=== PATIENT | male | born 1990 | race Caucasian/White ===

== ENCOUNTER 2018-12-10 14:17 | Emergency (ER) | payer SELFPAY ==
[2018-12-10 14:56] VITALS: BP 131/76
[2018-12-10] MEDS ORDERED: DEXAMETHASONE SOD PHOS INJ 10 MG/1 ML VIAL IM ONE (16:29)
[2018-12-10] MEDS ORDERED: KETOROLAC TROMETHAMINE 60 MG/2 ML SDV IM ONE (16:29)
[2018-12-10] MEDS ORDERED: PENICILLIN V POTASSIUM 500 MG TABLET PO ONE (16:30)
--- NOTE | 2018-12-10 16:31 | ER Document Report ---
HPI - HPI Time Seen by Provider: 12/10/18 16:01 Pain Level: 5 Notes: Patient is an otherwise healthy 28-year-old male presenting with complaint of right jaw swelling. Patient reports over the last few days he has been having dental pain to the right lower teeth. He reports he has had an abscess there in the past. He reports unable to see a dentist. Denies any drainage and denies any fever. - CONSTITUTIONAL Constitutional: DENIES: Fever, Chills - NEURO Neurology: REPORTS: Headache Past Medical History - General Information source: Patient - Social History Smoking Status: Current Every Day Smoker Frequency of alcohol use: None Drug Abuse: None Family History: Reviewed & Not Pertinent Patient has suicidal ideation: No Patient has homicidal ideation: No Pulmonary Medical History: Reports: Hx Asthma Renal/ Medical History: Denies: Hx Peritoneal Dialysis Vertical Provider Document - CONSTITUTIONAL Notes: PHYSICAL EXAMINATION: GENERAL: Well-appearing, well-nourished and in no acute distress. HEAD: Atraumatic, normocephalic. EYES: Pupils equal round extraocular movements intact, conjunctiva are normal. ENT: Nares patent, mild swelling noted to right lower jawline, multiple dental caries noted with poor dentition. No drainable abscess identified. Patient speaking in full and complete sentences and swallowing without difficulty. NECK: Normal range of motion LUNGS: No respiratory distress Musculoskeletal: Normal range of motion NEUROLOGICAL: Normal speech, normal gait. PSYCH: Normal mood, normal affect. SKIN: Warm, Dry, normal turgor, no rashes or lesions noted. - INFECTION CONTROL TRAVEL OUTSIDE OF THE [place] IN LAST 30 DAYS: No Course - Re-evaluation Re-evalutation: Physical examination most consistent with dental infection. Will place patient on penicillin and encouraged him to follow-up with dentist. Patient verbalizes understanding and agreement with plan. - Vital Signs Vital signs: Temp Pulse Resp BP Pulse Ox 98.4 F 79 16 131/76 H 97 12/10/18 14:54 12/10/18 14:54 12/10/18 14:54 12/10/18 14:54 12/10/18 14:54 Discharge - Discharge Clinical Impression: Dental abscess Condition: Stable Disposition: HOME, SELF-CARE Additional Instructions: Your examination appears to be consistent with a dental abscess or dental infection. Please take the antibiotics as prescribed. Please take ibuprofen 600 mg every 6 hours for pain and inflammation. Please call the [facility] at [phone] for follow-up. Return to the emergency department if you develop increased swelling, a fever or any other symptom that is concerning to you. Prescriptions: Penicillin V Potassium [Penicillin Vk 500 mg Tablet] 500 mg PO BID #20 tablet
== END 2018-12-10 16:45 | disposition home or self-care (01) ==
LOC: ER 14:17
DX: K04.7 Periapical abscess without sinus (principal); K02.9 Dental caries, unspecified; K08.89 Other specified disorders of teeth and supporting structures; R51 Headache; J45.909 Unspecified asthma, uncomplicated; F17.200 Nicotine dependence, unspecified, uncomplicated
CPT/HCPCS: 99282; 96372; J1885; J1100

== ENCOUNTER 2019-06-08 23:33 | Emergency (ER) | payer BC ==
[2019-06-09] MEDS ORDERED: KETOROLAC TROMETHAMINE 60 MG/2 ML SDV IM ONE (01:45)
[2019-06-09] MEDS ORDERED: DEXAMETHASONE SOD PHOS INJ 10 MG/1 ML VIAL IM ONE (01:45)
[2019-06-09] MEDS ORDERED: PENICILLIN V POTASSIUM 500 MG TABLET PO ONE (01:45)
[2019-06-09] MEDS ORDERED: KETOROLAC TROMETHAMINE INJ/PF 30 MG/1 ML SDV IM ONE (01:50)
--- NOTE | 2019-06-09 01:51 | ER Document Report ---
HPI - HPI Time Seen by Provider: 06/09/19 01:38 Pain Level: 2 Context: Patient is a 28-year-old male presents to the emergency department the chief complaint of left upper dental pain. Patient states that earlier today he did have a headache. He states that he took a nap thinking that he was exhausted and woke up at 10 with left facial swelling and left upper dental pain. Patient states that at that time he took 800 mg of ibuprofen and thousand milligrams of Tylenol. Patient states he does have a history of the same earlier this year in which she was diagnosed with a dental infection. He states he did follow-up with the [facility] and had 1 of his teeth pulled. Patient reports a history of poor dentition and multiple broken teeth. Patient states that penicillin has worked for him in the past. Patient denies fever or difficulty swallowing. Past Medical History - General Information source: Patient - Social History Smoking Status: Current Every Day Smoker Lives with: Alone Family History: Reviewed & Not Pertinent - Past Medical History Cardiac Medical History: Reports: None Pulmonary Medical History: Reports: Hx Asthma EENT Medical History: Reports: None Neurological Medical History: Reports: None Endocrine Medical History: Reports: None Renal/ Medical History: Reports: None. Denies: Hx Peritoneal Dialysis Malignancy Medical History: Reports None GI Medical History: Reports: None Musculoskeletal Medical History: Reports None Skin Medical History: Reports None Psychiatric Medical History: Reports: None Traumatic Medical History: Reports: None Infectious Medical History: Reports: None Surgical Hx: Negative Vertical Provider Document - CONSTITUTIONAL Agree With Documented VS: Yes Exam Limitations: No Limitations General Appearance: No Apparent Distress - INFECTION CONTROL TRAVEL OUTSIDE OF THE [place] IN LAST 30 DAYS: No - HEENT HEENT: Atraumatic, Normal ENT Exam Mouth Diagram: 1 - Tenderness to palpation, tooth is broken. Patient has multiple broken teeth and poor dentation. No palpable abscess noted in the mouth or to the buccal area. Notes: Patient does have left facial swelling, no surrounding cellulitis. - NECK Neck: Normal Inspection - RESPIRATORY Respiratory: Breath Sounds Normal, No Respiratory Distress - CARDIOVASCULAR Cardiovascular: Regular Rate - GI/ABDOMEN Gastrointestinal: Abdomen Soft, Abdomen Non-Tender - NEURO Level of Consciousness: Awake, Alert, Appropriate - DERM Integumentary: Warm Course - Re-evaluation Re-evalutation: 06/09/19 01:53 Upon initial examination of the patient he is sitting upright in triage and in no acute distress. The patient does have some left facial swelling. Patient's symptoms are consistent with a dental infection as he has extreme pain upon palpation to multiple teeth in the left upper mouth. Patient has significantly poor dentition. Patient states he does follow-up with the [facility] clarice reddy in their dental department. I did inform the patient once his infection has healed to call them to make an appointment as he may need to have more teeth extracted. Will give patient a dose of anti-inflammatory as well as a steroid prior to discharge. Patient will get his first dose of penicillin while in the emergency department and be prescribed a 10-day course. I did inform the patient to return if the swelling to his face becomes worse, if he develops redness, fever or difficulty swallowing. Patient verbalized understanding and denies questions at discharge. - Vital Signs Vital signs: Temp Pulse Resp BP Pulse Ox 98 F 91 20 120/75 96 06/08/19 23:48 06/08/19 23:48 06/08/19 23:48 06/08/19 23:48 06/08/19 23:48 Discharge - Discharge Clinical Impression: Dental infection Condition: Stable Disposition: HOME, SELF-CARE Instructions: Toradol Injection ([facility]), Pain Medication Injection ([facility]) Additional Instructions: Today you were seen in the emergency department for a dental infection that is causing swelling to the left side of your face. We have given you a shot of dexamethasone which is a steroid as well as a shot of Toradol which is an anti- inflammatory. This should help with the swelling. You are also being placed on antibiotics called penicillin. You will take this twice a day for the next 10 days. Ultimately you do need to follow-up with the [facility] as you have done in the past to potentially have multiple teeth extracted. Please call them to make a follow-up appointment. Please stop smoking. Please return to the emergency department if the facial swelling worsens, you have difficulty swallowing or breathing, you develop a fever, redness to the cheek or worsening signs or symptoms. Dental Infection or Abscess You have an infection, perhaps an abscess (pus formation) of the gum around one of your teeth, which is probably decayed. If there is an abscess, it may drain on its own or it may need to be opened or lanced. Severe swelling or drainage around a tooth usually means a deep dental abscess which usually requires evaluation and treatment by a dentist or oral surgeon. Antibiotics may be prescribed while awaiting dental treatment. If you develop high fever with chills, worsening pain, or increasing swelling in the area, see a dentist or oral surgeon immediately or return to the Emergency Department immediately. Prescriptions: Penicillin V Potassium [Penicillin Vk 500 mg Tablet] 500 mg PO BID #20 tablet Forms: Smoking Cessation Education
[2019-06-09 02:30] VITALS: BP 123/85
== END 2019-06-09 02:27 | disposition home or self-care (01) ==
LOC: ER 23:33
DX: K04.7 Periapical abscess without sinus (principal); K08.89 Other specified disorders of teeth and supporting structures; J45.909 Unspecified asthma, uncomplicated; F17.200 Nicotine dependence, unspecified, uncomplicated
CPT/HCPCS: 99282; 96374; 96375; J1885; J1100